=== PATIENT | female | born 1990 | race Caucasian/White ===

== ENCOUNTER → 2018-03-31 08:59 | Outpatient (CLI) | payer OTHER, SELFPAY ==
--- NOTE | 2018-03-31 09:03 | BI_ITS ---
MAMMOGRAPHY - BILATERAL DIAGNOSTIC REASON FOR EXAM: Female, 27 years old. Left breast lump. PERTINENT HISTORY: Grandmother with breast cancer. TECHNIQUE: Digital bilateral breast margot (3D mammographic acquisition) in the CC and MLO projections. 2-D mediolateral oblique (MLO) and craniocaudad (CC) views of both breasts were obtained. CAD: Full Field Digital Mammography with Computer Added Detection was performed. COMPARISON: None. Baseline examination. FINDINGS: Breast Composition: The breasts are extremely dense, which lowers the sensitivity of mammography. There are no dominant masses or suspicious calcifications. No other significant abnormalities are identified. BI/DIAG MAMM W/CAD, BILAT IMPRESSION: Negative diagnostic mammogram. With the patient's history of a palpable abnormality in the inferior medial aspect of the left breast, correlation with ultrasound is recommended. ASSESSMENT CATEGORY: BIRADS Category 0: Incomplete. Need additional imaging evaluation. A letter regarding these results will be sent to the patient by the facility within 30 days. Approximately 10% of breast cancers are not detected by mammography. A normal mammogram should not delay biopsy of a clinically suspicious abnormality. Electronically Signed: Cristian Johns MD at 11:09 EST , Service support ,
--- NOTE | 2018-03-31 09:03 | US_ITS ---
STUDY: ULTRASOUND BREAST - LEFT REASON FOR EXAM: Female, 27 years old. Palpable lump left breast. TECHNIQUE: Axial and longitudinal images of the LEFT breast were performed with a high resolution ultrasound transducer. COMPARISON: Comparison is made with prior mammogram done earlier today. FINDINGS: LEFT Breast: The palpable abnormality corresponds to a 1.9 cm x 1.3 cm x 0.7 cm well-defined hypoechoic nodular density. This most likely represents a fibroadenoma although tissue diagnosis is recommended. US/Breast Limited Unilateral IMPRESSION: The palpable abnormality corresponds to a 1.9 cm x 1.3 cm x 0.7 cm hypoechoic well-defined nodule at the 9:00 breast at 4 cm from the nipple. This most likely represent a fibroadenoma although biopsy recommended. ASSESSMENT CATEGORY: BIRADS Category 4: Suspicious - Biopsy Should Be Considered. A letter regarding these results will be sent to the patient by the facility within 30 days. Electronically Signed: Cristian Johns MD at 10:55 EST , Service support ,
== END ==
PROVIDERS: Referring Provider Obstetrics & Gynecology; Visit Provider Obstetrics & Gynecology
DX: N63.20 Unspecified lump in the left breast, unspecified quadrant (principal); Z80.3 Family history of malignant neoplasm of breast
CPT/HCPCS: 76642; 77062; 77066; G0279

== ENCOUNTER → 2018-04-14 16:00 | Outpatient (CLI) | payer OTHER, SELFPAY ==
--- NOTE | 2018-04-14 14:45 | BRBX_PTH ---
PATIENT: KIRIT RUTHERFORD LOC: [facility] U#:[id number] AGE/SX: 34/F ROOM: RE04/14/[address]: Dr. Donn Correia MD : 1990 BED: DIS: SPEC #: [id number] RECD: 04/14/18 15:53 STATUS: AMELIA MARCEL #: [id number] DELLA: 04/14/18 14:[address]: Donn Correia DEPT: SURGICAL PATHOLOGY RECD BY: Quan Nj ENTERED: 04/15/18 12:05 SP TYPE: BREAST BX OTHR DR: No Primary Care Phys Tissues: Left breast, NOS Procedures: Surgery Specimen Level IV HEADER OPERATION: Ultrasound-guided left breast needle core biopsy PRE-OP DIAGNOSIS: Left breast mass TISSUE SUBMITTED: Left breast tissue ISCHEMIC TIME: 30 seconds FIXATION TIME: 28.5 hours MICROSCOPIC DIAGNOSIS Left breast mass, ultrasound-guided needle core biopsy: Benign breast tissue with fibroadenomatoid hyperplasia and stromal sclerosis. Comment: The findings may reflect a benign fibroadenoma. CE:alma 04/16/18 COMMENT Case has been reviewed in consultation with Dr. Zhang who concurs with the above diagnosis. IDC:SJ MICROSCOPIC DESCRIPTION Slides are reviewed. GROSS DESCRIPTION Received in fixative is one container labeled with the patient's name and designated left breast biopsy. The specimen consists of multiple elongated fragments of finley-yellow fibroadipose tissue that in aggregate measure 0.7 x 0.3 x 0.1 cm. The entire specimen is submitted in one cassette. / SJ:alma 04/15/18 TC:1 CPT: 72767
== END ==
PROVIDERS: Referring Provider Surgery; Visit Provider Surgery
DX: N63.20 Unspecified lump in the left breast, unspecified quadrant (principal)
CPT/HCPCS: 88305

== ENCOUNTER 2018-10-24 21:18 | Emergency (ER) | payer OTHER, SELFPAY ==
[2018-10-24 21:18] VITALS: BP 121/68; PULSE 93; RESP 16; TEMP 36.3; O2SAT 100; BMI 20.3
--- NOTE | 2018-10-24 22:39 | ED.VIS.GEN ---
History of Present Illness Chief Complaint: Abscess Narrative: Patient is a 28-year-old female who presents with a Bartholin abscess. She has a history of these previously with previous drainage and Word catheter. 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 She complains of pain and swelling on the left side of the vagina for about 3 days. No fevers nausea vomiting chest pain trouble breathing. Past Medical History - Allergies and Home Meds Allergies/Adverse Reactions: Allergies No Known Allergies Allergy (Verified 10/24/18 21:21) Primary Care Physician: Care Physician,No Primary [Primary Care Provider] - Prior records reviewed: Yes Past Medical History: - - Prior Bartholin abscess Smoking Status: Current every day smoker Review of Systems All systems negative except as indicated General: Denies: Fever Cardiovascular: Denies: Chest pain Respiratory: Denies: Dyspnea Gastrointestinal: Denies: Vomiting, Diarrhea Skin: Denies: Rash Physical Exam Vital Signs/Narrative: Vital Signs Temp Pulse Resp BP Pulse Ox 10/24/18 21:18 97.4 F L 93 16 121/68 H 100 General: Well nourished Head: Normocephalic Eyes: EOMI ENT: Moist mucous membranes Neck: Supple Cardiovascular: Regular rate, Regular rhythm Respiratory: No distress, CTA bilaterally Abdomen: Soft, Nontender, Nondistended : - - Patient has a large left-sided Bartholin abscess fluctuant Skin: Normal color Neurological: Alert Psychological: Normal affect Diagnostic/Tx/Re-eval - Medical Decision Making I discussed procedural sedation. However patient states previously she tolerated just local anesthetic so wanted to proceed with this and avoid an IV if possible. After informed consent her labia was anesthetized with 3 to 4 cc of 1% local lidocaine without epinephrine which was well-tolerated. A stab incision was made with a #11 blade with copious purulent drainage. Unfortunately we do not have word catheters available. I spoke to gynecology on-call who recommended trying normal abscess packing. However I was unable to pass 1/4 inch packing through the incision and in order to place this type of packing I would have needed to extend the incision. For cosmetic and healing reasons as well as potential further pain we deferred on packing. She was advised on sitz bath's. She was advised to follow-up with gynecology soon as possible. We will also place her on doxycycline. ED Disposition - Plan for ED Patient: Disposition: Home or Assisted Living Diagnosis: Bartholin's gland abscess Instructions: BARTHOLIN'S CYST (I and D) Prescriptions: Doxycycline 100 mg PO BID #20 cap Prescription Printed Referrals: Care Physician,No Primary [Primary Care Provider] - Reena Nair MD [STAFF PHYSICIAN] -
[2018-10-24 23:31] VITALS: BP 100/79; PULSE 83; RESP 18; O2SAT 100
== END 2018-10-24 23:31 | disposition home or self-care (01) ==
PROVIDERS: Emergency Provider Emergency Medicine
DX: N75.1 Abscess of Bartholin's gland (principal); F17.200 Nicotine dependence, unspecified, uncomplicated
CPT/HCPCS: 99282

== ENCOUNTER → 2020-07-25 09:00 | Outpatient (CLI) | payer OTHER, SELFPAY ==
[2020-07-25 10:38] LABS: Anion Gap 5 (5-15); BUN 14 mg/dL (7-18); BUN/Creat Ratio 21.1 RATIO (10-20); Chloride 106 mmol/L (98-107); Cholesterol 159 mg/dL (200); Creatinine, Serum 0.66 mg/dL (0.55-1.02); EST Glomerular Filtration Rate 112 mL/min (>60); Est Glom Filt Rate - Afr Amer 135 mL/min (>60); Glucose 90 mg/dL (74-106); High Density Lipoprotein 56 mg/dL; Potassium 4.6 mmol/L (3.5-5.1); Sodium Level 139 mmol/L (136-145); Triglycerides 69 mg/dL; Very Low Density Lipoprotein 14 mg/dL (5-40)
== END ==
PROVIDERS: Visit Provider Family Medicine
DX: Z00.00 Encounter for general adult medical examination without abnormal findings (principal)
CPT/HCPCS: 36415; 80048; 80061